=== PATIENT | male | born 1950 | race Caucasian/White ===

== ENCOUNTER 2019-04-03 14:40 | Observation (INO) ==
[2019-04-03 17:42] LABS: Basophils # 0.1 10*3/uL (0.0-0.2); Basophils % 0.7 % (0.0-0.8); Eosinophils # 0.2 10*3/uL (0.0-0.87); Eosinophils % 2.2 % (0.00-10.9); Hematocrit 37.7 VOL% (42.0-52.0); Hemoglobin 11.9 GM/DL (14.0-18.0); Immature Granulocytes % 0.7 %; Immature Granulocytes Absolute 0.06 #; Lymphocytes # 2.2 10*3/uL (1.4-4.0); Lymphocytes % 25.9 % (21.2-54.2); Mean Corpuscular HGB Conc 31.6 GM/DL (32-36); Mean Corpuscular Volume 97.9 FL (87-102); Mean Platelet Volume 9.2 FL (9.6-12.0); Monocytes % 7.7 % (1.7-12.7); Neutrophils % 62.8 % (38.7-73.9); Platelet Count 192 T/CUMM (130-400); Red Blood Count 3.85 MC/CUMM (3.8-5.5); Red Cell Distribution Width 13.2 % (9.3-17.3); White Blood Count 8.7 T/CUMM (4-12)
[2019-04-03 17:55] LABS: INR 1.1; PT Patient Result 11.4 SECS (9.6-12.2); Partial Thromboplastin Time 27.3 SECS (20.8-36.0)
[2019-04-03 19:02] LABS: Albumin 3.3 G/DL (3.4-5.0); Bilirubin,Total 0.6 MG/DL (0.2-1.0); Calcium 7.5 MG/DL (8.5-10.1); Osmolality,Calculated 282.4 MOS/KG (273-304)
[2019-04-03] MEDS ORDERED: ACETAMINOPHEN 325 MG TABLET PO PRN (19:30)
[2019-04-03] MEDS ORDERED: ONDANSETRON 4 MG/2 ML VIAL IV PRN (19:30)
[2019-04-04 07:55] VITALS: BP 126/76
[2019-04-04] MEDS ORDERED: INFLUENZA VIRUS VACCINE 0.5 ML SYRINGE IM ONE (08:58)
[2019-04-04] MEDS ORDERED: PANTOPRAZOLE 40 MG TABLET PO SCH (09:00)
[2019-04-04] MEDS ORDERED: CALCIUM (CARBONATE)/VITAMIN D 600 MG-400 UNIT TABLET PO SCH (21:00)
[2019-04-04] MEDS ORDERED: SIMVASTATIN 10 MG TABLET PO SCH (21:00)
[2019-04-04] MEDS ORDERED: carvediloL 6.25 MG TABLET PO SCH (21:00)
[2019-04-04] MEDS ORDERED: POTASSIUM CITRATE 5 MEQ PO SCH (21:00)
[2019-04-04] MEDS ORDERED: FERROUS SULFATE 325 MG TABLET PO SCH (21:00)
[2019-04-05] MEDS ORDERED: allopurinoL 100 MG TABLET PO SCH (09:00)
[2019-04-05] MEDS ORDERED: [UNRECOGNIZED DRUG - OTHER] PO SCH (09:00)
== END 2019-04-04 10:55 | disposition home or self-care (01) ==
LOC: N.EDINP 14:40 → N.ED 14:40 → N.3E 20:30
PROVIDERS: ADMIT Student in an Organized Health Care Education/Training Program; ATTEND Student in an Organized Health Care Education/Training Program